=== PATIENT | female | born 1990 | race Caucasian/White ===

== ENCOUNTER 2019-06-06 00:24 | Day surgery (SDC) | payer OTHER, SELFPAY ==
[2019-05-26 16:19] VITALS: BMI 29.7
--- NOTE | 2019-06-02 08:51 | PM.IMHP ---
H&P: HPI History of Present Illness Chief complaint: heavy bleeding Narrative: Rajesh Dumont is a 28 year old female status post tubal ligation who was admitted for hysteroscopy dilatation curettage and the nerve ablation. She has extremely heavy periods and she has not tolerated oral contraceptives in the past risks and benefits were reviewed including but not exclusive of , aspiration pneumonia, bleeding, transfusion, perforation injury to bowel, bladder, ureters, or other internal organs with need for open laparotomy. She voiced good understanding. She had all questions answered. She read the [employer] handout entitled hysteroscopy and dilatation and curettage respectively. She also received the manner of a handout she asked to proceed Review of Systems Review of Systems: All systems reviewed & are unremarkable except as noted in HPI and below Meds Home Medications and Allergies Home Medications Medication Instructions Recorded Confirmed Type buspirone 5 mg PO DAILY 05/26/19 05/26/19 History melatonin 5 mg PO HS 05/26/19 05/26/19 History sertraline 100 mg PO DAILY 05/26/19 05/26/19 History Allergies Allergy/AdvReac Type Severity Reaction Status Date / Time cefaclor Allergy Severe SWELLING, Verified 05/26/19 16:21 ITCHING Penicillins Allergy Mild RASH, Verified 05/26/19 16:21 ITCHING Assessment and Plan Additional Plan impression: Excessive heavy bleeding refractory to medical therapy Plan: Hysteroscopy, dilatation and curettage, the nerve ablation
--- NOTE | 2019-06-06 06:47 | WPDHPUPDATE1 ---
History and Physical Update Update Date/Time: 06/06/19 06:47 History and Physical has been reviewed, including an updated exam of the patient. There are NO changes in the patient's condition. Risks, benefits, and alternatives have been discussed and questions answered. Patient agrees to proceed with procedure.
[2019-06-06 07:30] VITALS: BP 107/50; PULSE 70; RESP 20; TEMP 36.3; O2SAT 100
[2019-06-06] MEDS: LACTATED RINGERS 1,000 ML 30 ML IV CONT (07:30)
--- NOTE | 2019-06-06 08:26 | P.PNAN_ITS ---
Anes - Initial Pre Proc Eval Procedure: Operation Date: 06/06/19 09:00 Proposed Procedures p Hysteroscopy, Dilatation and Curettage with Leila - Toni Vela MD Date/Time: 06/06/19 08:26 Surgeon: Toni Vela MD Pre Op Diagnosis: heavy bleeding Patient Data Age: 28 Gender: F Height: 5 ft 8 in Weight: 91 kg Last Vital Signs Temp 97.3 F L 06/06/19 07:30 Pulse 70 06/06/19 07:30 Resp 20 06/06/19 07:30 BP 107/50 L 06/06/19 07:30 Pulse Ox 100 06/06/19 07:30 Allergies Allergy/AdvReac Type Severity Reaction Status Date / Time cefaclor Allergy Severe SWELLING, Verified 06/06/19 08:09 ITCHING Penicillins Allergy Mild RASH, Verified 06/06/19 08:09 ITCHING Home Medications Medication Instructions Recorded Confirmed Type buspirone 5 mg PO DAILY 05/26/19 06/06/19 History melatonin 5 mg PO HS 05/26/19 05/26/19 History sertraline 100 mg PO DAILY 05/26/19 06/06/19 History hydrocodone-acetaminophen [[place]] 1 tablet PO Q4H PRN #20 tablet 06/06/19 Rx Patient hx anesthesia problems: none Family hx anesthesia problems: none PMFSH Past Medical History Medical History (Updated 06/06/19 @ 08:25 by Guicho Barker MD) Anxiety Depression Social History Social History (Updated 06/06/19 @ 08:26 by Guicho Barker MD) Years smoked: 1.5 Smoking status: Former smoker Alcohol intake: never Anes - Eval Final PreProcedure Day of Procedure 06/06/19 08:26 Patient weight: normal Heart: regular rate and rhythm Lungs: clear to auscultation Airway: Mallampati scale class II Neurological: alert and oriented Last oral intake: >/= 8 hours ASA classification: II Emergent: no Anesthetic plan: proceed Anesthesia type and monitoring: general GIVS and standard monitoring Informed Consent: The patient's anesthetic plan and its attendant risks and benefits were discussed with the patient/family/POA. Questions were solicited and answers provided to the satisfaction of the patient/family/POA.
[2019-06-06] MEDS: KETOROLAC 30 MG/ML VIAL (*BKC) IV PUSH (09:10)
--- NOTE | 2019-06-06 09:17 | PM.PROC ---
Procedure Note - Detailed Date of procedure: 06/06/19 Pre-op diagnosis: heavy bleeding Surgeon: Toni Vela MD Postop diagnosis: Heavy bleeding Anesthesia: IV sedation local EBL: 25cc Findings: Uterus sounded to9.5cm. Thick endometrial tissue Complications: None Procedure: Hysteroscopy, dilatation curettage, nyla on ablation Description of procedure: The patient was prepped and draped in the normal sterile fashion and placed in the dorsal lithotomy position. Under excellent IV sedation a weighted speculum was placed in the posterior fornix of vagina. Anterior lip of the cervix was then grasped with a single-tooth tenaculum. The uterus sounded to9.5cm. 2.5cc of 1% xylocaine anesthesia placed at 2, 4, 8, 10:00 a.m. of the cervix. The 5mm visualizing hysteroscope was inserted and thick endometrium was seen. No evidence of other abnormalities were seen. The uterus was then scraped over the entire 360? until a good grating sound was heard. The min nerve instrument was then placed in the uterus and placed at the appropriate settings. 122nd burn was then undertaken. The instruments removed. The hysteroscope was then inserted and a good burn was noted. The instruments removed. All sponge, needle, instrument counts were correct. There were no immediate complications.
[2019-06-06 09:36] VITALS: BP 117/64; PULSE 68; RESP 20; O2SAT 100
[2019-06-06 10:00] VITALS: BP 120/72; PULSE 66; RESP 20; O2SAT 100
[2019-06-06 10:32] VITALS: BP 116/92; PULSE 68; O2SAT 100
--- NOTE | 2019-06-06 10:45 | SUR.PHASEII ---
1040- pt up to get dressed. stated she is dizzy and has some nausea. called dr. barnes and he stated to given oral zofran 4 mg before she leaves to go home. ordered placed.
[2019-06-06] MEDS: ONDANSETRON HCL ODT 4 MG TABLET PO (10:51)
== END 2019-06-06 10:53 | disposition home or self-care (01) ==
PROVIDERS: PCP Family Medicine; Visit Provider Obstetrics & Gynecology
PROC: 0U5B8ZZ Destruction of Endometrium, Via Natural or Artificial Opening Endoscopic (ICD-10-PCS; CPT 58563; principal; 2019-06-06 09:00)
DX: N93.9 Abnormal uterine and vaginal bleeding, unspecified (principal); F41.8 Other specified anxiety disorders; Z87.891 Personal history of nicotine dependence
CPT/HCPCS: 58563; 88305; A9270; J1885; J2250; J2704; J3010; J7030; J7120

== ENCOUNTER 2020-08-08 09:47 | Outpatient (CLI) | payer OTHER, SELFPAY | END 2020-08-08 09:48 | disposition home or self-care (01) | LOC: ANHCOVIDVC 09:47 | PROVIDERS: PCP Family Medicine | DX: Z23 Encounter for immunization (principal) | CPT/HCPCS: 0001A; 91300 ==

== ENCOUNTER 2020-08-29 09:42 | Outpatient (CLI) | payer OTHER, SELFPAY | END 2020-08-29 09:43 | LOC: ANHCOVIDVC 09:43 | PROVIDERS: PCP Family Medicine | DX: Z23 Encounter for immunization (principal) | CPT/HCPCS: 0002A; 91300 ==

== ENCOUNTER 2021-01-17 12:36 | Emergency (ER) | payer OTHER, SELFPAY ==
[2021-01-17 12:49] VITALS: BP 137/80; PULSE 98; RESP 16; TEMP 36.7; O2SAT 100
--- NOTE | 2021-01-17 12:52 | ED.GENADULT ---
HPI - General Adult General Chief complaint: Nausea/Vomiting/Diarrhea Stated complaint: Vomiting,Headache,Lower Back Pain,Nausea Time Seen by Provider: 01/17/21 12:47 Source: patient and RN notes reviewed Mode of arrival: ambulatory Limitations: no limitations History of Present Illness HPI narrative: 30-year-old female presents to the [facility] with nausea that started yesterday morning. Vomiting and lower back pain started last night. Diarrhea that started yesterday. increased fatigue. Increased urination. Last menstrual period last Thursday. Denies abdominal pain. No chest pain. Denies fevers Stop smoking 3 days ago. History of anxiety and depression. Related Data Home Medications Medication Instructions Recorded Confirmed buspirone 5 mg PO DAILY 05/26/19 07/13/19 melatonin 5 mg PO HS 05/26/19 07/13/19 sertraline 100 mg PO DAILY 05/26/19 07/13/19 meloxicam 15 mg PO DAILY 07/13/19 07/13/19 Allergies Allergy/AdvReac Type Severity Reaction Status Date / Time cefaclor Allergy Severe SWELLING, Verified 07/13/19 15:38 ITCHING Penicillins Allergy Mild RASH, Verified 07/13/19 15:38 ITCHING Review of Systems Review of Systems: All systems reviewed & are unremarkable except as noted in HPI and below Constitutional: Constitutional: Reports no additional constitutional complaints, Denies chills and Denies fever(s) Eyes: Eyes: Reports no additional eye complaints ENT: Reports system reviewed and no additional complaints, except as documented Cardiovascular: Cardiovascular: Reports no additional cardiovascular complaints and Denies chest pain Respiratory: Respiratory: Reports no additional respiratory complaints, Denies cough, Denies dyspnea and Denies wheezing Gastrointestinal: Gastrointestinal: Reports abdominal pain, Reports diarrhea, Reports nausea and Reports vomiting Genitourinary: Genitourinary: Reports as per HPI and Reports nocturia Musculoskeletal: Musculoskeletal: Reports as per HPI and Reports back pain (lower) Integumentary/Breasts: Skin/Breast: Reports system reviewed and no additional complaints, except as docu Neurologic: Reports as per HPI and Reports headache(s) Psychiatric: Psychiatric: Reports no additional psychiatric complaints Allergic/Immunologic: Allergic/Immunologic: Reports no additional allergic/immunologic complaints PMFSH Past Medical History Medical History (Updated 01/17/21 @ 13:17 by Pita Mario) Anxiety Depression Surgical History Surgical History (Updated 01/17/21 @ 16:30 by Pita Mario) No significant past surgical history Social History Social History (Updated 01/17/21 @ 16:31 by Pita Mario) Years smoked: 1.5 Smoking status: Former smoker Smoking end date: 01/14/21 Alcohol intake: never Comments At the time of my signature, I reviewed and agree with the nursing past medical, surgical, social, and family history. There is no relevant family history pertinent to the patient complaint. Exam Const: General: no acute distress HENMT: Head: normal to inspection Eyes: Conjunctivae: conjunctivae normal Pupils: Equal, round and reactive pupils present Neck: Neck: normal visual inspection, no lymphadenopathy and no meningeal signs Chest: Chest palpation & inspection: normal inspection of the chest Resp: Effort & Inspection: normal respiratory effort and no use of accessory muscles Auscultation: clear to auscultation bilaterally, no crackles, no rales, no rhonchi and no wheezes Cardio: Rate: regular rate Rhythm: regular rhythm GI: GI Palp: Yes Soft to palpation, No Tenderness to palpation present (GI), No Guarding due to palpation present (GI), No Rigid due to palpation and No Rebound tenderness present Auscultation: normal bowel sounds : General: Yes no CVA tenderness Back/Spine/Pelvis: Back: no CVA tenderness Skin: General skin exam: normal color Rashes: no rashes Wounds: no wounds Neuro: General: patient oriented x3,
[2021-01-17] MEDS: ONDANSETRON HCL ODT 4 MG TABLET PO (13:04)
== END 2021-01-17 13:25 | disposition home or self-care (01) ==
PROVIDERS: Emergency Provider Nurse Practitioner; PCP Family Medicine
DX: K52.9 Noninfective gastroenteritis and colitis, unspecified (principal); F41.9 Anxiety disorder, unspecified; F32.9 Major depressive disorder, single episode, unspecified; Z87.891 Personal history of nicotine dependence
CPT/HCPCS: 81003; 81025; 99213; A9270; G0463

== ENCOUNTER 2021-08-05 12:27 | Outpatient (CLI) | payer OTHER, SELFPAY ==
--- NOTE | ~2021-08-05 | XR_ITS ---
EXAM: XR thoracic spine 3V HISTORY: PAIN IN THORACIC SPINE, NKI COMPARISON: None available FINDINGS: Normal mineralization. Mild curvature of the thoracic spine, may be due to mild scoliosis or positioning. Vertebral body heights and pedicles are normal. Mild multilevel disc narrowing and ma rginal osteophytosis in the upper and mid thoracic spine. No fracture or dislocation. Visualized lung parenchyma clear. IMPRESSION: Mild multilevel degenerative disc disease. Reviewed, dictated and finalized at location K.
== END 2021-08-05 12:28 | disposition home or self-care (01) ==
LOC: ANHIMG 12:31
PROVIDERS: PCP Family Medicine; Visit Provider Nurse Practitioner Adult Health
DX: M51.34 Other intervertebral disc degeneration, thoracic region (principal)
CPT/HCPCS: 72072

== ENCOUNTER 2022-04-04 13:30 | Emergency (ER) | payer OTHER, SELFPAY ==
[2022-04-04 13:44] VITALS: BP 129/74; PULSE 83; RESP 16; TEMP 36.6; O2SAT 100
--- NOTE | 2022-04-04 14:24 | ED.EYEPROB ---
HPI - Eye Problem General Chief complaint: Eye Problems Stated complaint: Lt Eye Irritation Time Seen by Provider: 04/04/22 14:18 Source: patient Mode of arrival: ambulatory Limitations: no limitations History of Present Illness HPI Narrative: Patient presents today complaining of soreness to the left eye x2 days with some crusting in the mornings and some intermittent blurred vision. Denies any recent sick symptoms, purulent discharge the patient. She has tried no [id number] treatment prior to arrival. States her boss at work told her that she likely had pinkeye and wanted her to come in for evaluation. Patient does wear glasses but does not have them on. Related Data Home Medications Medication Instructions Recorded Confirmed melatonin 5 mg tablet 5 mg PO HS 05/26/19 04/04/22 sertraline 100 mg tablet 100 mg PO DAILY 05/26/19 04/04/22 Allergies Allergy/AdvReac Type Severity Reaction Status Date / Time cefaclor AdvReac Severe SWELLING, Verified 04/04/22 13:42 ITCHING Penicillins AdvReac Mild RASH, Verified 04/04/22 13:42 ITCHING Review of Systems Review of Systems: CONSTITUTIONAL: Denies body aches, fever, chills, or sweats. EYES: + Blurred vision, left eye soreness and redness ENT: Denies rhinorrhea, congestion, sore throat, or otalgia. CARDIOVASCULAR: Denies chest pain, palpitations, or edema. RESPIRATORY: Denies cough or dyspnea. GASTROINTESTINAL: Denies abdominal pain, nausea, vomiting, or diarrhea. GENITOURINARY: Denies dysuria or hematuria. SKIN: Denies rash, itching, or wounds. MUSCULOSKELETAL: Denies back pain, joint pain, or myalgia. NEUROLOGIC: Denies headache, numbness, tingling, or weakness. PSYCH: Denies depression or anxiety. [facility] Past Medical History Medical History Anxiety Depression Surgical History Surgical History No significant past surgical history Social History Social History Years smoked: 1.5 Smoking status: Former smoker Smoking end date: 01/14/21 Alcohol intake: never Comments At time of signature, I have reviewed and agree with nursing past medical, surgical, social and family history unless otherwise noted. Please see nursing chart for further information. There is no relevant family history pertinent to the presenting complaint Exam Narrative: GENERAL: Well-appearing, well-nourished, and in no acute distress. HEAD: Normocephalic, atraumatic. EYES: EOMI. PERRL. right eye normal. left eye: Very mildly injected conjunctivae. No obvious drainage. Lids and lashes normal. ENT: Mucous membranes pink and moist. Nares clear. No rhinorrhea. TMs normal bilaterally. Throat normal. Uvula midline. NECK: Normal AROM. CHEST: No respiratory distress. EXTREMITIES: Normal range of motion. No edema. SKIN: Warm, dry, no rash. Capillary refill normal. Normal skin turgor. NEURO: No focal deficits. Alert and oriented x3. Gait steady. PSYCH: Normal affect. No signs of depression or anxiety. Course Course Level of Care: Express Care Visit Vital Signs Vital signs: Vital Signs Temperature 97.8 F 04/04/22 13:44 Pulse Rate 83 04/04/22 13:44 Respiratory Rate 16 04/04/22 13:44 Blood Pressure 129/74 04/04/22 13:44 Pulse Oximetry 100 04/04/22 13:44 Oxygen Delivery Room Air 04/04/22 13:44 Temperature 97.8 F 04/04/22 13:44 Pulse Rate 83 04/04/22 13:44 Respiratory Rate 16 04/04/22 13:44 Blood Pressure 129/74 04/04/22 13:44 Pulse Oximetry 100 04/04/22 13:44 Oxygen Delivery Room Air 04/04/22 13:44 Reviewed. Pt has been instructed to follow up with her PCP regarding her elevated blood pressure today. MDM - Eye Problem Differential Diagnosis Differential diagnosis: Likely corneal abrasion, conjunctivitis and periorbital
== END 2022-04-04 14:35 | disposition home or self-care (01) ==
PROVIDERS: Emergency Provider Nurse Practitioner; PCP Family Medicine
DX: H10.9 Unspecified conjunctivitis (principal); Z87.891 Personal history of nicotine dependence
CPT/HCPCS: 99211; G0463